=== PATIENT | female | born 1965 | race Caucasian/White ===

== ENCOUNTER 2017-04-29 09:14 | Emergency (ER) | payer OTHER ==
[2017-04-29 09:52] LABS: ABSOLUTE EOSINOPHILS # (AUTO) 0.1 10^3/uL (0.0-0.6); ABSOLUTE LYMPHOCYTES (AUTO) 1.7 10^3/uL (0.5-4.7); HEMOGLOBIN 13.3 g/dL (12.0-15.5); MEAN CORPUSCULAR HEMOGLOBIN 28.7 pg (27.0-33.4); WHITE BLOOD COUNT 3.5 10^3/uL (4.0-10.5)
[2017-04-29] MEDS ORDERED: NORMAL SALINE 1000 ML 1,000 ML IV ONE (09:55)
--- NOTE | 2017-04-29 09:59 | ER Document Report ---
HPI - HPI Pain Level: Denies Notes: Patient is a 62-year-old female who presents the ED by EMS complaining of shortness of breath, palpitations, and dizziness while on her way to work this morning. Patient states that she is feeling symptomatically she called EMS after she pulled over at [place]. Patient states that her symptoms have since resolved and she is feeling much better. Patient states that she is just tired right now. Patient states that she was eating and drinking without any difficulties. Patient states that she did see endocrinology yesterday for her fluctuating thyroid issue of which she is not taking any medications currently for. Patient also has a past medical history of migraines and GERD which he takes Maxalt and Nexium for. Denies any drug allergies. Denies any smoking or illicit drug use or alcohol consumption. Denies any recent illness, travel, exposure to sick contacts. Denies any cardiac medical history. Denies any headache, fever, head injury, neck pain/stiffness, changes in vision/speech/ mentation/hearing, URI, sore throat, chest pain, palpitations, syncope, cough, current shortness of breath, wheeze, dyspnea, abdominal pain, nausea/vomiting/ diarrhea, urinary retention, dysuria, hematuria, loss of control of bowel or bladder, numbness/tingling, saddle anesthesia, muscle paralysis/weakness, or rash. - ROS Notes: REVIEW OF SYSTEMS: (current) CONSTITUTIONAL : Denies fever, chills, or sweats. Denies recent illness. EENT: Denies eye, ear, throat, or mouth pain or symptoms. Denies nasal or sinus congestion or discharge. Denies throat, tongue, or mouth swelling or difficulty swallowing. CARDIOVASCULAR: see hpi. Denies chest pain. Denies palpitations or racing or irregular heart beat. Denies ankle edema. RESPIRATORY: see hpi. Denies cough, cold, or chest congestion. Denies shortness of breath, difficulty breathing, or wheezing. GASTROINTESTINAL: Denies abdominal pain or distention. Denies nausea, vomiting , or diarrhea. Denies blood in vomitus, stools, or per rectum. Denies black, tarry stools. Denies constipation. GENITOURINARY: Denies difficulty urinating, painful urination, burning, frequency, blood in urine, or discharge. FEMALE GENITOURINARY: Denies vaginal bleeding, heavy or abnormal periods, irregular periods. Denies vaginal discharge or odor. MUSCULOSKELETAL: Denies back or neck pain or stiffness. Denies joint pain or swelling. SKIN: Denies rash, lesions or sores. NEUROLOGICAL: see hpi. Denies confusion or altered mental status. Denies passing out or loss of consciousness. Denies dizziness or lightheadedness. Denies headache. Denies weakness or paralysis or loss of use of either side. Denies problems with gait or speech. Denies sensory loss, numbness, or tingling. Denies seizures. PSYCHIATRIC: Denies anxiety or stress. Denies depression, suicidal ideation, or homicidal ideation. ALL OTHER SYSTEMS REVIEWED AND NEGATIVE. Dictation was performed using [employer] voice recognition software - CARDIOVASCULAR Cardiovascular: DENIES: Chest pain - REPRODUCTIVE Reproductive: DENIES: : - DERM Skin Color: Normal Past Medical History - Social History Smoking Status: Never Smoker Chew tobacco use (# tins/day): No Frequency of alcohol use: None Drug Abuse: None Family History: Arthritis, CAD, DM, Hyperlipidemia, Hypertension - Past Medical History Cardiac Medical History: Denies: Hx Coronary Artery Disease, Hx Heart Attack, Hx Hypertension Pulmonary Medical History: Reports: Hx Bronchitis Denies: Hx Asthma, Hx COPD, Hx Pneumonia Neurological Medical History: Reports: Hx Migraine. Denies: Hx Cerebrovascular Accident, Hx Seizures Endocrine Medical History: Reports: Hx Hyperthyroidism Renal/ Medical History: Denies: Hx Peritoneal Dialysis Musculoskeltal Medical History: Reports Hx Arthritis, Reports Hx Musculoskeletal Deformity Past Surgical History: Reports: Hx Hysterectomy, Hx Orthopedic Surgery - fusion c6-7, Hx Tubal Ligation. Denies: Hx Pacemaker - Immunizations Immunizations up to date: Yes Hx Diphtheria, Pertussis, Tetanus Vaccination: Yes Vertical Provider Document - CONSTITUTIONAL Agree With Documented VS: Yes Notes: PHYSICAL EXAMINATION: GENERAL: Well-appearing, well-nourished and in no acute distress. HEAD: Atraumatic, normocephalic. EYES: Pupils equal round and reactive to light, extraocular movements intact, sclera anicteric, conjunctiva are normal. ENT: EAC clear b/l. TM's intact b/l without erythema, fluid, or perforation. Nares patent and without discharge. oropharynx clear without exudates. No tonsilar hypertrophy or erythema. Moist mucous membranes. No sinus tenderness. NECK: Normal range of motion, supple without lymphadenopathy. No rigidity/ meningismus. LUNGS: Breath sounds clear to auscultation bilaterally and equal. No wheezes rales or rhonchi. HEART: Regular rate and rhythm without murmurs, rubs, gallops. ABDOMEN: Soft, nontender, nondistended abdomen. No guarding, no rebound. No masses appreciated. Normal bowel sounds present. No CVA tenderness bilaterally. Musculoskeletal: ext b/l: FROM to passive/active. Strength 5+/5. No focal deficits noted. Marissa neg b/l. Extremities: No cyanosis, clubbing, or edema b/l. Peripheral pulses 2+. Capillary refill less than 3 seconds. NEUROLOGICAL: MMSE intact. Cranial nerves grossly intact. Normal speech, normal gait. Normal sensory, motor exams. Reflexes 2+ b/l. KYLER's negative. Pronator drift negative. Heel/brown, finger/nose wnl. PSYCH: Normal mood, normal affect. SKIN: Warm, Dry, normal turgor, no rashes or lesions noted. - INFECTION CONTROL TRAVEL OUTSIDE OF THE [place] IN LAST 30 DAYS: No - RESPIRATORY O2 Sat by Pulse Oximetry: 98 Course - Re-evaluation Re-evalutation: 04/29/17 11:02 Patient is an afebrile, well-hydrated, 52-year-old female who presents the ED with hyperthyroidism who is currently asymptomatic. Vitals are stable with a heart rate between 95 and 100. PE otherwise unremarkable at this time. EKG, chest x-ray, cardiac enzymes, CBC, CMP otherwise unremarkable as well for any acute pathology. Heart score of 1. Well's/PERC score of 0. Low suspicion for any ACS, PE, pneumothorax, pericarditis, dissection, sepsis, or other urgent/ emergent systemic condition at this time. Reviewed case with Pt's airplane inspector out of Dr. Ace's office in [facility]. He recommends atenolol 25 mg p.o. daily along with methimazole 5 mg p.o. daily and they will contact her to schedule an appointment as soon as possible. Conservative measures otherwise for symptoms. Keep consult with endocrinology. Recheck with PCM this week as well. Return to the ED with any worsening/concerning symptoms otherwise as reviewed discharge. Patient is in agreement. - Vital Signs Vital signs: Temp Pulse Resp BP Pulse Ox 97.6 F 118 H 20 139/86 H 98 04/29/17 09:19 08/17/17 09:19 04/29/17 09:19 04/29/17 09:19 04/29/17 09:19 - Laboratory Result Diagrams: 04/29/17 09:34 04/29/17 09:34 Discharge - Discharge Clinical Impression: Hyperthyroidism Condition: Stable Disposition: HOME, SELF-CARE Instructions: Hyperthyroidism ([facility]) Additional Instructions: Take medications as prescribed Monitor symptoms closely Your airplane inspector office will call you today to schedule an appointment as soon as possible recheck with your PCM this week as well Return to the ED with any worsening symptoms and/or development of fever, headache, chest pain, palpitations, syncope, shortness of breath, trouble breathing, abdominal pain, n/v/d, blood in stool/urine, loss of control of bowel /bladder, urinary retention, muscle weakness/paralysis, saddle anesthesia, numbness/tingling, or other worsening symptoms that are concerning to you. Prescriptions: Atenolol [Tenormin] 25 mg PO DAILY #15 tablet Methimazole 5 mg PO DAILY #15 tablet Referrals: BLANCA SHAFFER PA [Primary Care Provider] - Follow up as needed NADEEM ACE MD [NO LOCAL MD] - Follow up tomorrow
[2017-04-29 10:00] LABS: ABSOLUTE MONOCYTES (AUTO) 0.4 10^3/uL (0.1-1.4); ABSOLUTE NEUT (AUTO) 1.3 10^3/uL (1.7-8.2); BASOPHILS % (AUTO) 0.4 % (0-2); EOSINOPHILS % (AUTO) 1.8 % (0-6); HEMATOCRIT 39.7 % (36.0-47.0); HGB HCT DIFFERENCE 0.2; LYMPHOCYTES % (AUTO) 49.1 % (13-45); MEAN CORPUSCULAR HGB CONC 33.4 g/dL (32.0-36.0); MEAN CORPUSCULAR VOLUME 86 fl (80-97); MONOCYTES % (AUTO) 12.6 % (3-13); RED BLOOD COUNT 4.62 10^6/uL (3.72-5.28); RED CELL DISTRIBUTION WIDTH 13.1 % (11.5-14.0); SEGMENTED NEUTROPHILS % (AUTO) 36.1 % (42-78)
[2017-04-29 10:32] LABS: ALANINE AMINOTRANSFERASE 73 U/L (9-52); ALBUMIN 4.1 g/dL (3.5-5.0); ALKALINE PHOSPHATASE 105 U/L (38-126); ANION GAP 12 (5-19); ASPARTATE AMINO TRANSFERASE 65 U/L (14-36); BILIRUBIN,DIRECT 0.5 mg/dL (0.0-0.4); BLOOD UREA NITROGEN 17 mg/dL (7-20); CARBON DIOXIDE 24 mmol/L (22-30); CHLORIDE 105 mmol/L (98-107); CREATINE KINASE 38 U/L (30-135); GLUCOSE 130 mg/dL (75-110); POTASSIUM 4.2 mmol/L (3.6-5.0); SODIUM 140.5 mmol/L (137-145); TOTAL PROTEIN 7.5 g/dL (6.3-8.2)
[2017-04-29 10:33] LABS: CREATINE KINASE MB 0.26 ng/mL (<4.55)
[2017-04-29 10:35] LABS: TROPONIN I < 0.012 ng/mL
[2017-04-29 11:06] LABS: APPEARANCE,URINE CLEAR; BILIRUBIN,URINE NEGATIVE (NEGATIVE); GLUCOSE, URINE NEGATIVE (NEGATIVE); KETONES,URINE NEGATIVE (NEGATIVE); LEUKOCYTE ESTERASE,URINE NEGATIVE (NEGATIVE); NITRITE,URINE NEGATIVE (NEGATIVE); PROTEIN,URINE NEGATIVE (NEGATIVE); URINE SPECIFIC GRAVITY 1.005; UROBILINOGEN,URINE NEGATIVE mg/dL (<2.0)
[2017-04-29 12:02] LABS: FREE T3 14.3 pg/mL (2.77-5.27)
--- NOTE | 2017-04-29 13:52 | EKG REPORT ---
SEVERITY:- NORMAL ECG - SINUS RHYTHM : Confirmed by: David Rosario MD 29-Apr-2017 13:51:57
[2017-04-29] MEDS ORDERED: NORMAL SALINE 1000 ML 1,000 ML IV PRN (14:01)
[2017-04-29 14:51] VITALS: BP 119/88
--- NOTE | 2017-04-30 15:13 | RADIOLOGY REPORT (SQ) ---
EXAM DESCRIPTION: CHEST SINGLE VIEW COMPLETED DATE/TIME: 04/29/2017, 1003 hours REASON FOR STUDY: Shortness of breath COMPARISON: 11/20/2010, 11/13/2009, 08/02/2009 TECHNIQUE: AP portable chest, 04/29/2017, 1003 hours LIMITATIONS: None FINDINGS: No focal infiltrates. No pleural effusion or pneumothorax. No pulmonary nodules. Cardiac silhouette size normal. Mildly tortuous uncoiled thoracic aorta, stable. No hilar enlargeme nt. No acute bony changes. IMPRESSION: No acute changes
== END 2017-04-29 14:51 | disposition home or self-care (01) ==
LOC: ER 09:14
DX: E05.90 Thyrotoxicosis, unspecified without thyrotoxic crisis or storm (principal); R06.02 Shortness of breath; R42 Dizziness and giddiness; R00.2 Palpitations; R53.83 Other fatigue; K21.9 Gastro-esophageal reflux disease without esophagitis; Z79.899 Other long term (current) drug therapy
CPT/HCPCS: 93005; 99284; 36415; 84439; 82553; 82550; 84443; 85025; 80053; 81001; 84484; 84481; 71010; 93010; J7030

== ENCOUNTER → 2017-05-20 | Outpatient (CLI) | payer OTHER ==
[2017-05-21 09:55] LABS: FREE T3 9.52 pg/mL (2.77-5.27)
[2017-05-21 10:11] LABS: THYROID STIMULATING HORMONE < 0.01 uIU/mL (0.47-4.68)
== END ==
LOC: OD 15:31
PROVIDERS: ATTEND Nurse Practitioner Family
DX: E06.3 Autoimmune thyroiditis (principal)
CPT/HCPCS: 36415; 83519; 84439; 84443; 84481

== ENCOUNTER → 2017-07-07 | Outpatient (CLI) | payer OTHER ==
[2017-07-07 15:35] LABS: THYROID STIMULATING HORMONE < 0.01 uIU/mL (0.47-4.68)
== END ==
LOC: OD 10:51
PROVIDERS: ATTEND Internal Medicine Endocrinology, Diabetes & Metabolism
DX: E06.3 Autoimmune thyroiditis (principal)
CPT/HCPCS: 36415; 84439; 84443; 84480

== ENCOUNTER → 2017-08-18 | Outpatient (CLI) | payer OTHER ==
[2017-08-18 09:50] LABS: THYROID STIMULATING HORMONE < 0.01 uIU/mL (0.47-4.68)
== END ==
LOC: OD 07:48
PROVIDERS: ATTEND Internal Medicine Endocrinology, Diabetes & Metabolism
DX: E06.3 Autoimmune thyroiditis (principal)
CPT/HCPCS: 36415; 84439; 84443; 84480

== ENCOUNTER → 2017-12-06 | Outpatient (CLI) | payer OTHER ==
[2017-12-06 15:55] LABS: FREE T4 (FREE THYROXINE) 0.77 ng/dL (0.78-2.19)
[2017-12-06 16:09] LABS: THYROID STIMULATING HORMONE 1.18 uIU/mL (0.47-4.68)
== END ==
LOC: OD 14:43
PROVIDERS: ATTEND Internal Medicine Endocrinology, Diabetes & Metabolism
DX: E06.3 Autoimmune thyroiditis (principal)
CPT/HCPCS: 36415; 84439; 84443

== ENCOUNTER 2018-03-03 18:30 | Emergency (ER) | payer OTHER ==
[2018-03-03 19:17] LABS: ABSOLUTE BASOPHILS # (AUTO) 0.1 10^3/uL (0.0-0.2); ABSOLUTE EOSINOPHILS # (AUTO) 0.1 10^3/uL (0.0-0.6); ABSOLUTE MONOCYTES (AUTO) 1.1 10^3/uL (0.1-1.4); ABSOLUTE NEUT (AUTO) 7.9 10^3/uL (1.7-8.2); BASOPHILS % (AUTO) 0.6 % (0-2); EOSINOPHILS % (AUTO) 0.8 % (0-6); HEMATOCRIT 41.9 % (36.0-47.0); HEMOGLOBIN 13.9 g/dL (12.0-15.5); LYMPHOCYTES % (AUTO) 17.9 % (13-45); MEAN CORPUSCULAR HGB CONC 33.3 g/dL (32.0-36.0); MEAN CORPUSCULAR VOLUME 87 fl (80-97); MONOCYTES % (AUTO) 9.5 % (3-13); PLATELET COUNT 286 10^3/uL (150-450); RED CELL DISTRIBUTION WIDTH 13.6 % (11.5-14.0); SEGMENTED NEUTROPHILS % (AUTO) 71.2 % (42-78); TOTAL CELLS COUNTED % (AUTO) 100 %; WHITE BLOOD COUNT 11.1 10^3/uL (4.0-10.5)
[2018-03-03 19:30] LABS: APPEARANCE,URINE CLEAR; BILIRUBIN,URINE NEGATIVE (NEGATIVE); COLOR,URINE YELLOW; GLUCOSE, URINE NEGATIVE (NEGATIVE); KETONES,URINE NEGATIVE (NEGATIVE); LEUKOCYTE ESTERASE,URINE NEGATIVE (NEGATIVE); NITRITE,URINE NEGATIVE (NEGATIVE); PROTEIN,URINE NEGATIVE (NEGATIVE); URINE SPECIFIC GRAVITY 1.011; UROBILINOGEN,URINE NEGATIVE mg/dL (<2.0)
[2018-03-03 19:34] LABS: ALANINE AMINOTRANSFERASE 38 U/L (9-52); ALBUMIN 4.8 g/dL (3.5-5.0); ALKALINE PHOSPHATASE 154 U/L (38-126); ANION GAP 14 (5-19); ASPARTATE AMINO TRANSFERASE 29 U/L (14-36); BILIRUBIN,DIRECT 0.3 mg/dL (0.0-0.4); BILIRUBIN,TOTAL 0.9 mg/dL (0.2-1.3); BLOOD UREA NITROGEN 13 mg/dL (7-20); CARBON DIOXIDE 24 mmol/L (22-30); CHLORIDE 105 mmol/L (98-107); GLUCOSE 109 mg/dL (75-110); LIPASE 331.9 U/L (23-300); POTASSIUM 4.4 mmol/L (3.6-5.0); SODIUM 142.8 mmol/L (137-145); TOTAL PROTEIN 8.5 g/dL (6.3-8.2)
[2018-03-03] MEDS ORDERED: NORMAL SALINE 1000 ML 1,000 ML IV ONE (20:07)
[2018-03-03] MEDS ORDERED: MORPHINE SULFATE 10 MG/ML INJ IV ONE ×2 (20:07→21:16)
--- NOTE | 2018-03-03 21:33 | RADIOLOGY REPORT (SQ) ---
EXAM DESCRIPTION: U/S ABDOMEN LIMITED W/O DOP COMPLETED DATE/TIME: 03/03/2018 9:22 pm REASON FOR STUDY: ruq epigastric pain COMPARISON: None. TECHNIQUE: Dynamic and static grayscale images acquired of the abdomen and recorded on PACS. Additio nal selected color Doppler and spectral images recorded. LIMITATIONS: Bowel gas. FINDINGS: PANCREAS: Head and body normal tail obscured by gas. LIVER: 16.8 cm. Normal echotexture. No masses. LIVER VASCULATURE: Normal directional flow of the main portal vein and hepatic veins. GALLBLADDER: No stones. Normal wall thickness. No pericholecystic fluid. ULTRASOUND-DETECTED CASTELLANOS'S SIGN: Negative. INTRAHEPATIC DUCTS AND COMMON DUCT: CBD and intrahepatic ducts normal caliber. No filling defects. INFERIOR VENA CAVA: Normal flow. AORTA: Proximal and mid aorta normal for distal aorta obscured by gas. RIGHT KIDNEY: Normal size, 12.2 cm. Normal echogenicity. No solid or suspicious masses. No hydroneph rosis. No calcifications. PERITONEAL AND RIGHT PLEURAL SPACE: No ascites or effusions. OTHER: No other significant findings. IMPRESSION: NORMAL RIGHT UPPER QUADRANT ULTRASOUND. TECHNICAL DOCUMENTATION: JOB ID: [id number] [employer]- All Rights Reserved Reading location - IP/workstation name: [email or web address]
--- NOTE | 2018-03-03 22:01 | ER Document Report ---
ED General - General Chief Complaint: Abdominal Pain Stated Complaint: ABDOMINAL PAIN, NAUSEA, DIARRHEA Time Seen by Provider: 03/03/18 19:16 TRAVEL OUTSIDE OF THE [place] IN LAST 30 DAYS: No - HPI Patient complains to provider of: Diarrhea epigastric abdominal pain Notes: Patient is coming in today for evaluation of epigastric abdominal pain diarrhea nausea patient currently is on azithromycin for sinus infection and only has 1 tablet left to complete her course of antibiotics states pain started day early in the morning patient not had anything ER they said for a banana. Patient denies any abdominal pathology. Patient denies any surgical pathology as well still having her gallbladder still having her appendix. Pain is not exacerbated or relieved with any food or any measures to patient has taken at home. Patient states diarrhea approximate 6 times loose watery no new pets no recent travel patient does have a history of esophagitis and is currently on Dexilant - Related Data Allergies/Adverse Reactions: No Known Allergies Allergy (Verified 04/29/17 09:21) Past Medical History - Social History Smoking Status: Never Smoker Chew tobacco use (# tins/day): No Frequency of alcohol use: None Drug Abuse: None Family History: Arthritis, CAD, DM, Hyperlipidemia, Hypertension Patient has suicidal ideation: No Patient has homicidal ideation: No - Past Medical History Cardiac Medical History: Denies: Hx Coronary Artery Disease, Hx Heart Attack, Hx Hypertension Pulmonary Medical History: Reports: Hx Bronchitis Denies: Hx Asthma, Hx COPD, Hx Pneumonia Neurological Medical History: Reports: Hx Migraine. Denies: Hx Cerebrovascular Accident, Hx Seizures Endocrine Medical History: Reports: Hx Hyperthyroidism Renal/ Medical History: Denies: Hx Peritoneal Dialysis Musculoskeltal Medical History: Reports Hx Arthritis, Reports Hx Musculoskeletal Deformity Past Surgical History: Reports: Hx Hysterectomy, Hx Orthopedic Surgery - fusion c6-7, Hx Tubal Ligation. Denies: Hx Pacemaker - Immunizations Immunizations up to date: Yes Hx Diphtheria, Pertussis, Tetanus Vaccination: Yes Review of Systems - Review of Systems Constitutional: No symptoms reported EENT: No symptoms reported Cardiovascular: No symptoms reported Respiratory: No symptoms reported Gastrointestinal: Abdominal pain, Diarrhea, Nausea Genitourinary: No symptoms reported Female Genitourinary: No symptoms reported Musculoskeletal: No symptoms reported Skin: No symptoms reported Hematologic/Lymphatic: No symptoms reported Neurological/Psychological: No symptoms reported -: Yes All other systems reviewed and negative Physical Exam - Vital signs Vitals: Temp Pulse Resp BP Pulse Ox 97.8 F 115 H 16 135/96 H 98 03/03/18 18:33 03/03/18 18:33 03/03/18 18:33 03/03/18 18:33 03/03/18 18:33 Interpretation: Normal - General General appearance: Appears well, Alert - HEENT Head: Normocephalic, Atraumatic Eyes: Normal Pupils: PERRL - Respiratory Respiratory status: No respiratory distress Chest status: Nontender Breath sounds: Normal Chest palpation: Normal - Cardiovascular Rhythm: Regular Heart sounds: Normal auscultation Murmur: No - Abdominal Inspection: Normal Distension: No distension Bowel sounds: Normal Tenderness: Tender - Moderate epigastric tenderness with mild right upper quadrant tenderness no Gutierrez sign no guarding or rebound Organomegaly: No organomegaly - Back Back: Normal, Nontender - Extremities General upper extremity: Normal inspection, Nontender, Normal color, Normal ROM , Normal temperature General lower extremity: Normal inspection, Nontender, Normal color, Normal ROM , Normal temperature, Normal weight bearing. No: Marissa's sign - Neurological Neuro grossly intact: Yes Cognition: Normal Orientation: AAOx4 Spangle Coma Scale Eye Opening: Spontaneous Rad Coma Scale Verbal: Oriented Spangle Coma Scale Motor: Obeys Commands Rad Coma Scale Total: 15 Speech: Normal Motor strength normal: LUE, RUE, LLE, RLE Sensory: Normal - Psychological Associated symptoms: Normal affect, Normal mood - Skin Skin Temperature: Warm Skin Moisture: Dry Skin Color: Normal Course - Re-evaluation Re-evalutation: 03/04/18 03:59 Ultrasound was performed because of the right upper quadrant tenderness and slight elevation in lipase this was returned normal. Lipase is more likely elevated due to underlying gastritis patient states compliance with her Dexilant recommend switching this to omeprazole to see if there is a change in her symptoms would change the PPI. Patient agrees this plan also will treat symptoms more likely etiology of her symptoms are from the azithromycin. Recommended to continue with her treatment course follow-up with your primary care physician The patient presents with abdominal pain without signs of peritonitis or other life-threatening or serious etiology. The patient appears stable for discharge and has been instructed to return immediately if the symptoms worsen in any way, or in 8-12hr if not improved for re-evaluation. The patient has been instructed to return if the symptoms worsen or change in any way. - Vital Signs Vital signs: Temp Pulse Resp BP Pulse Ox 97.8 F 115 H 21 H 111/70 97 03/03/18 18:33 03/03/18 18:33 03/03/18 22:01 03/03/18 22:01 03/03/18 22:01 - Laboratory Result Diagrams: 03/03/18 19:03 03/03/18 19:03 Laboratory results interpreted by me: 03/03/18 03/03/18 03/03/18 19:03 19:03 19:03 WBC 11.1 H Alkaline Phosphatase 154 H Total Protein 8.5 H Lipase 331.9 H Urine Blood LARGE H Discharge - Discharge Clinical Impression: Epigastric abdominal pain Condition: Good Disposition: HOME, SELF-CARE Instructions: Abdominal Pain ([facility]), Diarrhea, Nonspecific ([facility]), Nausea or Vomiting, Nonspecific ([facility]) Additional Instructions: Your evaluation tonight does not reveal any significant pathology for your epigastric abdominal pain. Your ultrasound is negative no signs of gallbladder or liver disease. Your laboratory studies not show any signs of significant infection. Her symptoms may be brought on by the azithromycin that you are currently taking. Please continue this antibiotic completion. We will treat her symptoms with nausea medication Zofran and Phenergan you did not need to get both of these nausea medications filled. I would also recommend possibly changing her Dexilant for the next 2 weeks to the Prilosec prescribed. Recommend taking Tylenol and Motrin for pain Ultram prescribed for severe pain. Return to ER symptoms worsen or if you develop a fever. Would recommend clear liquid diet for the next 12-24 hours and advance Prescriptions: Omeprazole 40 mg PO DAILY 14 Days capsule. Ondansetron [Zofran Odt] 4 mg PO Q6 PRN #30 tab.rapdis PRN Reason: For Nausea/Vomiting Promethazine HCl [Phenergan 25 mg Tablet] 25 mg PO Q6 #30 tablet Tramadol HCl [Ultram 50 mg Tablet] 50 mg PO ASDIR PRN #20 tablet PRN Reason: Forms: Return to Work Referrals: BLANCA SHAFFER PA [Primary Care Provider] - Follow up in 3-5 days
[2018-03-03 22:18] VITALS: BP 111/70
== END 2018-03-03 22:18 | disposition home or self-care (01) ==
LOC: ER 18:30
DX: R10.13 Epigastric pain (principal); R11.0 Nausea; R19.7 Diarrhea, unspecified; R10.11 Right upper quadrant pain; Z79.899 Other long term (current) drug therapy
CPT/HCPCS: 96376; 99284; 96361; 96374; 36415; 83690; 85025; 80053; 81001; 76705; J2270; J7030